=== PATIENT | female | born 1965 | race Caucasian/White ===

== ENCOUNTER 2018-07-04 09:38 | Emergency (ER) | payer OTHER ==
[~2018-07-04] VITALS: Ht 170.2 cm; Wt 68.0 kg
[2018-07-04] MEDS ORDERED: ALBUTEROL/IPRATROPIUM 3 ML NEB NEB ONE (10:15)
[2018-07-04] MEDS ORDERED: IOPAMIDOL 370 MG/ML 50ML INFUS..BTL INJ ONE (11:45)
--- NOTE | 2018-07-04 11:51 | Diagnostic Imaging Report ---
EXAMINATION: PA and lateral views of the chest. COMPARISON: None CLINICAL HISTORY: Cough DISCUSSION: Lines/tubes: None. Lungs: Ill-defined opacity in the right lower lung may reflect pneumonia. Pleura: No pleural effusion or pneumothorax. Heart and mediastinum: The cardiomediastinal silhouette is normal. Bones and soft tissues: No acute bony abnormalities. IMPRESSION: Ill-defined opacity in the right lower lung may reflect pneumonia. Signed by: Dr. Chicho Mace M.D. on 07/04/2018 11:48 AM
--- NOTE | 2018-07-04 12:21 | Diagnostic Imaging Report ---
EXAMINATION: CT of the abdomen and pelvis with contrast. TECHNIQUE: Helical CT images of the abdomen and pelvis were performed from the lung bases to the lesser trochanters after the intravenous administration of 150 cc of Isovue 300 and the oral administration of none. Coronal and sagittal reformatted images were obtained.Dose modulation, iterative reconstruction, and/or weight based adjustment of the mA/kV was utilized to reduce the radiation dose to as low as reasonably achievable. COMPARISON: None. CLINICAL HISTORY:Abdominal pain and diarrhea DISCUSSION: ABDOMEN/PELVIS: LOWER THORAX:Consolidation within the right middle lobe. HEPATOBILIARY: Simple cyst in the right hepatic lobe. No intra-or extrahepatic biliary ductal dilation. The gallbladder is normal. SPLEEN: No splenomegaly. PANCREAS: No focal masses or ductal dilatation. ADRENALS: No adrenal nodules. KIDNEYS/URETERS: No hydronephrosis, stones, or solid mass lesions. PELVIC ORGANS/BLADDER: The bladder is normal. PERITONEUM/RETROPERITONEUM: No free air or fluid. LYMPH NODES: No intra-abdominal, retroperitoneal, pelvic or inguinal lymphadenopathy. VESSELS: The celiac trunk,superior and inferior mesenteric and bilateral renal arteries are patent The portal, superior mesenteric and splenic veins are patent. GI TRACT: No distention or wall thickening. BONES AND SOFT TISSUE: No bony destructive lesions. No soft tissue abnormalities. IMPRESSION: Right middle lobe pneumonia. Otherwise, no acute CT finding. Signed by: Dr. Chicho Mace M.D. on 07/04/2018 12:17 PM
[2018-07-04] MEDS ORDERED: AZITHROMYCIN 250 MG TAB PO ONE (12:30)
[2018-07-04] MEDS ORDERED: CEFTRIAXONE SOD 1 GM VIAL IM ONE (12:30)
[2018-07-04] MEDS ORDERED: ONDANSETRON HCL 4 MG ORAL DISINTEGRATING TAB PO ONE (13:15)
== END 2018-07-04 16:03 | disposition home or self-care (01) ==
LOC: FSED 09:38
DX: R10.32 Left lower quadrant pain (principal); J15.9 Unspecified bacterial pneumonia
CPT/HCPCS: 71046; 74177; 80053; 81003; 82553; 84484; 85025; 99285; J0696; Q0162; Q9967